=== PATIENT | female | born 1960 | race Caucasian/White ===

== ENCOUNTER 2016-11-03 10:04 | Emergency (ER) | payer OTHER ==
[~2016-11-03 10:04] MED LIST: ASPIRIN81 MG PO; B-121000 MCG PO; CERTAGEN1 EACH PO; CETIRIZINE HCL10 MG PO; GLUCOSAMINE CO1 EACH PO; JINTELI 1 MG-51 EACH PO; LISINOPRIL-HCT1 EACH PO; METFORMIN HCL1000 MG PO; MOBIC7.5 MG PO; OS-CAL+D500 MG PO; PRILOSEC20 MG PO; SYNTHROID75 MCG PO; TRAVATAN Z2.5 ML OU; ZOLOFT50 MG PO
[2016-11-03 10:55] LABS: BASOPHIL 0.1 % (0-2); EOSINOPHIL 2.3 % (0-5); HCT 43.4 % (37.0-47.0); HGB 14.2 g/dl (12.5-16.0); LYMPHOCYTE 9.2 % (15-48); MCH 29.6 pg (25.0-31.0); MCHC 32.7 g/dL (32.0-36.0); MCV 90.4 fL (78.0-100.0); MONOCYTE 6.1 % (0-12); MPV 9.6 fL (6.0-9.5); NEUTROPHIL 82.3 % (41-80); PLT 357 K/uL (150-400); RDW 14.6 % (11.5-14.0); WBC 12.1 K/uL (4.0-10.5)
[2016-11-03 11:14] LABS: ALBUMIN 4.1 g/dL (3.5-5.0); BILIRUBIN - TOTAL 0.3 mg/dL (0.1-1.0); CREATININE 0.6 mg/dL (0.5-1.0); GLOBULIN (CALCULATION) 3.9 g/dL (2.2-4.2); MAGNESIUM 1.76 mg/dL (1.40-2.10); POTASSIUM 4.6 mmol/L (3.5-5.1)
[2016-11-03 11:33] LABS: INR 0.91 (0.9-1.2); PROTHROMBIN TIME 11.9 SECONDS (11.7-14.0); PTT 29.2 SECONDS (23.2-31.4)
[2016-11-03 11:34] LABS: D-DIMER 1.78 ug/mLFEU (0.00-0.41)
== END 2016-11-03 13:42 | disposition home or self-care (01) ==
LOC: FER 10:04
PROVIDERS: Emergency Medicine
DX: K29.70 Gastritis, unspecified, without bleeding (principal); E11.9 Type 2 diabetes mellitus without complications; I10 Essential (primary) hypertension; E03.9 Hypothyroidism, unspecified; K21.9 Gastro-esophageal reflux disease without esophagitis; Z86.718 Personal history of other venous thrombosis and embolism; Z90.49 Acquired absence of other specified parts of digestive tract; Z88.5 Allergy status to narcotic agent; Z91.040 Latex allergy status; Z79.82 Long term (current) use of aspirin; Z79.84 Long term (current) use of oral hypoglycemic drugs; Z79.899 Other long term (current) drug therapy
CPT/HCPCS: 36415; 71010; 80053; 82550; 83735; 84484; 85025; 85379; 85610; 85730; 93005; C9113; J2405

== ENCOUNTER 2021-08-09 11:06 | Emergency (ER) | payer OTHER ==
[~2021-08-09 11:06] MED LIST changes: +CELECOXIB200 MG PO; +CYMBALTA20 M1 PO; +CYMBALTA60 MG PO; +GABAPENTIN100 MG PO; +GABAPENTIN400 MG PO; +GABAPENTIN600 MG PO; +NEURONTIN 400M400 MG PO; +NEURONTIN300 MG PO
== END 2021-08-09 13:05 | disposition home or self-care (01) ==
LOC: FER 11:06
DX: M17.12 Unilateral primary osteoarthritis, left knee (principal); E11.9 Type 2 diabetes mellitus without complications; I10 Essential (primary) hypertension
CPT/HCPCS: 73564; J1885

== ENCOUNTER 2021-11-17 16:41 | Emergency (ER) | payer OTHER | END 2021-11-17 20:19 | disposition left against medical advice (07) | LOC: FER 16:41 | DX: Z53.21 Procedure and treatment not carried out due to patient leaving prior to being seen by health care provider (principal) ==